=== PATIENT | male | born 1980 | race Caucasian/White ===

== ENCOUNTER 2018-07-14 14:41 | Emergency (ER) | payer BC ==
[2018-07-14 14:47] VITALS: TEMP 98.2
[2018-07-14] MEDS ORDERED: MECLIZINE 12.5 MG TAB PO STA (15:02)
--- NOTE | 2018-07-14 15:05 | ED ---
General Adult HPI - General Chief complaint: Dizziness Stated complaint: dizzy/labored breathing Time Seen by Provider: 07/14/18 14:48 Source: patient Mode of arrival: ambulatory Limitations: no limitations - History of Present Illness Initial comments: Dictation was produced using [employer] dictation software. please excuse any grammatical, word or spelling errors. Chief Complaint: 38-year-old male with no significant past medical history presents with chief complaint of dizziness. History of Present Illness: She is a 38-year-old male presents with dizziness. Patient reports that his symptoms have been ongoing for the past several months. He states she's been having increased frequency and intensity of symptoms. He states that his symptoms are especially worse when standing from a supine position, going upstairs, bending forward. Patient denies any other symptoms at this time the runny nose. No facial pain. Patient denies any shortness of breath. Patient while at rest feels generally okay however when he starts moving feels like he is getting worsening dizziness. Patient has not sought any medical treatment. He states he came today because symptoms feel slightly worse. The ROS documented in this emergency department record has been reviewed and confirmed by me. Those systems with pertinent positive or negative responses have been documented in the HPI. All other systems are other negative and/or noncontributory. PHYSICAL EXAM: General Impression: Alert and oriented x3, not in acute distress HEENT: Normocephalic atraumatic, extra-ocular movements intact, pupils equal and reactive to light bilaterally, mucous membranes moist, irregular bilateral opacification to the tympanic membrane Cardiovascular: Heart regular rate and rhythm, S1&S2 audible, no murmurs, rubs or gallops Chest: Lungs clear to auscultation bilaterally, no rhonchi, no wheeze, no rales Abdomen: Bowel sounds present, abdomen soft, non-tender, non-distended, no organomegaly Musculoskeletal: Pulses present and equal in all extremities, no peripheral edema Motor: no focal deficits noted Neurological: CN II-XII grossly intact, no focal motor or sensory deficits noted, no nystagmus Skin: Intact with no visualized rashes Psych: Normal affect and mood ED course: 38-year-old male presents chief complaint dizziness. Patient has no other complaints at this time. Patient's symptoms are positional. Patient has no symptoms when at rest. Vital signs upon arrival are within acceptable limits. Neurologic exam is unremarkable. Patient has not been ataxic. Normal finger to nose. Patient has no primary care physician. He is given 1 tablet of Antivert. Patient given referral to primary care physician. He is also given referral to ear nose and throat doctor for outpatient management of dizziness. Patient insisted later that she wanted labs and imaging studies done. Laboratory and x-rays were unremarkable. Patient given Antivert with improvement of symptoms however still noticeable. Patient given outpatient referral to PCP and referral to ear nose and throat doctor. Patient clear for discharge. EKG interpretation: Ventricular rate 63, normal sinus rhythm, WI interval 150, QRS 92, , QTc 43. No WI prolongation, no QTC prolongation, no ST or T-wave changes noted. Overall, this EKG is unremarkable - Related Data Previous Rx's Medication Instructions Recorded Meclizine [Antivert] 25 mg PO BID PRN #14 tab 07/14/18 Allergies Allergy/AdvReac Type Severity Reaction Status Date / Time No Known Allergies Allergy Verified 07/14/18 14:47 Review of Systems ROS Statement: Those systems with pertinent positive or pertinent negative responses have been documented in the HPI. ROS Other: All systems not noted in ROS Statement are negative. Past Medical History Past Medical History: No Reported History History of Any Multi-Drug Resistant Organisms: None Reported Past Surgical History: Orthopedic Surgery Past Psychological History: No Psychological Hx Reported Smoking Status: Former smoker Past Alcohol Use History: Rare Past Drug Use History: Marijuana General Exam Limitations: no limitations Course Vital Signs 07/14/18 14:43 Temperature 98.2 F Pulse Rate 78 Respiratory 18 Rate Blood Pressure 119/74 O2 Sat by Pulse 100 Oximetry Medical Decision Making - Lab Data Result diagrams: 07/14/18 15:25 07/14/18 15:25 Lab Results 07/14/18 07/14/18 Range/Units 15:25 15:25 WBC 4.4 (3.8-10.6) k/uL RBC 5.41 (4.30-5.90) m/uL Hgb 16.1 (13.0-17.5) gm/dL Hct 47.6 (39.0-53.0) % MCV 88.1 (80.0-100.0) fL MCH 29.8 (25.0-35.0) pg MCHC 33.9 (31.0-37.0) g/dL RDW 12.6 (11.5-15.5) % Plt Count 229 (150-450) k/uL Neutrophils % 58 % Lymphocytes % 29 % Monocytes % 6 % Eosinophils % 3 % Basophils % 0 % Neutrophils # 2.6 (1.3-7.7) k/uL Lymphocytes # 1.3 (1.0-4.8) k/uL Monocytes # 0.3 (0-1.0) k/uL Eosinophils # 0.1 (0-0.7) k/uL Basophils # 0.0 (0-0.2) k/uL Sodium 140 (137-145) mmol/L Potassium 4.3 (3.5-5.1) mmol/L Chloride 106 (98-107) mmol/L Carbon Dioxide 25 (22-30) mmol/L Anion Gap 9 mmol/L BUN 16 (9-20) mg/dL Creatinine 0.87 (0.66-1.25) mg/dL Est GFR (CKD-EPI)AfAm >90 (>60 ml/min/1.73 sqM) Est GFR (CKD-EPI)NonAf >90 (>60 ml/min/1.73 sqM) Glucose 60 L (74-99) mg/dL Calcium 9.9 (8.4-10.2) mg/dL Magnesium 1.9 (1.6-2.3) mg/dL Serum Alcohol <10 mg/dL Disposition Clinical Impression: Dizziness Disposition: HOME SELF-CARE Condition: Good Instructions (If sedation given, give patient instructions): Dizziness (ED) Prescriptions: Meclizine [Antivert] 25 mg PO BID PRN #14 tab PRN Reason: dizziness Is patient prescribed a controlled substance at d/c from ED?: No Referrals: Palmer Lamb MD [REFERRING] - 1-2 days Lopez Corona DO [Doctor of Osteopathic Medicine] - 1-2 days Time of Disposition: 16:18
[2018-07-14 16:04] LABS: Basophils % (A) 0 %; Eosinophils # (A) 0.1 k/uL (0-0.7); Eosinophils % (A) 3 %; HCT 47.6 % (39.0-53.0); HGB 16.1 gm/dL (13.0-17.5); Lymphocytes # (A) 1.3 k/uL (1.0-4.8); Lymphocytes % (A) 29 %; MCH 29.8 pg (25.0-35.0); MCHC 33.9 g/dL (31.0-37.0); MCV 88.1 fL (80.0-100.0); Mean Platelet Volume 6.5; Monocytes # (A) 0.3 k/uL (0-1.0); Monocytes % (A) 6 %; Neutrophils # (A) 2.6 k/uL (1.3-7.7); Neutrophils % (A) 58 %; Platelet Count 229 k/uL (150-450); RBC 5.41 m/uL (4.30-5.90); RDW 12.6 % (11.5-15.5); WBC 4.4 k/uL (3.8-10.6)
--- NOTE | 2018-07-14 16:06 | XR ---
EXAMINATION TYPE: XR chest 2V DATE OF EXAM: 07/14/2018 COMPARISON: NONE HISTORY: Syncope. Short of breath TECHNIQUE: Frontal and lateral views of the chest are obtained. FINDINGS: Heart and mediastinum appear normal. Lungs are clear. Diaphragm is normal. Bony thorax rayray ears normal. There are chest leads. IMPRESSION: Normal chest
[2018-07-14 16:11] LABS: Alcohol <10 mg/dL; Anion Gap 9 mmol/L; Blood Urea Nitrogen 16 mg/dL (9-20); Calcium 9.9 mg/dL (8.4-10.2); Carbon Dioxide 25 mmol/L (22-30); Chloride 106 mmol/L (98-107); Glucose 60 mg/dL (74-99); Magnesium 1.9 mg/dL (1.6-2.3); Potassium 4.3 mmol/L (3.5-5.1); Sodium 140 mmol/L (137-145)
[2018-07-14 16:24] VITALS: BP 112/70; PULSE 63; RESP 14
== END 2018-07-14 16:23 | disposition home or self-care (01) ==
LOC: EC 14:41
DX: R42 Dizziness and giddiness (principal); Z87.891 Personal history of nicotine dependence
CPT/HCPCS: 36415; 71046; 80048; 80320; 83735; 85025; 93005; 99284